=== PATIENT | male | born 1960 | race Hispanic/Latino ===

== ENCOUNTER 2021-05-12 10:46 | Day surgery (SDC) | payer SELFPAY ==
[2021-05-12] MEDS ORDERED: NA CHLORIDE 0.9% 1,000 ML ONE (11:36)
[2021-05-12] MEDS ORDERED: propofoL 200 MG/20 ML VIAL IV ONE ×3 (12:38)
[2021-05-12] MEDS ORDERED: LIDOCAINE 1% MPF 5 ML VIAL ONE (12:39)
--- NOTE | 2021-05-12 13:02 | ENDO RPT ---
[address], [address] COLONOSCOPY PROCEDURE REPORT EXAM DATE: 05/12/2021 PATIENT NAME: Wilman Morales MR #: [id number] BIRTHDATE: 1960 ATTENDING: Naresh Mata DR STATUS: outpatient SEARCH ENGINE OPTIMIZATION MANAGER: Michell Sin RN and Tiana Quan INDICATIONS: The patient is a 60 yr old Male here for a colonoscopy due to hematochezia, hemoccult positive stools, melenic bleeding, and Positive Cologuard PROCEDURE PERFORMED: Colonoscopy with biopsy - cold polypectomy MEDICATIONS: Per Anesthesia. ESTIMATED BLOOD LOSS: None CONSENT: The patient understands the risks and benefits of the procedure and understands that these risks include, but are not limited to: sedation, allergic reaction, infection, perforation and/or bleeding. Alternative means of evaluation and treatment include, among others: physical exam, x-rays, and/or surgical intervention. The patient elects to proceed with this endoscopic procedure. DESCRIPTION OF PROCEDURE: During intra-op preparation period all mechanical medical equipment was checked for proper function. Hand hygiene and appropriate measures for infection prevention was taken. Procedure, possible complications, alternatives including, but not limited to possibility of bleeding, perforation, tear, infection, sepsis, need for surgery, need for blood transfusion, were explained to the patient. After the risks, benefits and alternatives of the procedure were thoroughly explained, Informed consent was verified, confirmed and timeout was successfully executed by the treatment team. The patient was placed in the left lateral position. A digital rectal exam was performed and revealed a palpable rectal mass. After appropriate level of anesthesia, the scope was passed. The EC-[id number] ([id number]) endoscope was introduced through the anus and advanced to the cecum, which was identified by both the appendix and ileocecal valve. The quality of the prep was fair. The instrument was then slowly withdrawn as the colon was fully examined. Scope withdrawal time was 20 minutes. COLON FINDINGS: A polypoid shaped and smooth semi-pedunculated polyp ranging between 3-7mm in size was found at the hepatic flexure. A polypectomy was performed using snare cautery. The resection was complete, the polyp tissue was completely retrieved and sent to histology. The area was tattood @ the biopsy site. A half circumferential firm and fungating mass with friable surfaces was found in the anal canal and rectum and in rectum seen upon the retroflexed view. Multiple biopsies of the area were performed using cold forceps. Mild diverticulosis was noted in the left colon. No bleeding was noted from the diverticulosis. anorectal mass. The scope was then completely withdrawn from the patient and the procedure terminated. ADVERSE EVENTS: There were no complications. IMPRESSIONS: 1. Semi-pedunculated polyp ranging between 3-7mm in size was found at the hepatic flexure; polypectomy was performed using snare cautery 2. Half circumferential mass was found in the rectum and in rectum seen upon the retroflexed view; multiple biopsies of the area were performed using cold forceps RECOMMENDATIONS: 1. follow-up: office 2 week(s) 2. avoid NSAIDS for 2 weeks 3. avoid NSAIDS 4. await biopsy results 5. Monitor for any evidence of rectal bleeding. 6. increase dietary water 7. low fiber / diverticular diet 8. surgery RECALL: Naresh Mata DR eSigned: Naresh Mata DR 05/12/2021 1:02 PM cc: CPT CODES: ICD9 CODES: PATIENT NAME: Wilman Morales MR#: [id number]
[2021-05-12 15:35] VITALS: O2SAT 100
[2021-05-12 15:36] VITALS: BP 128/79; TEMP 98.1
== END 2021-05-12 13:40 | disposition home or self-care (01) ==
LOC: PRE 10:46
PROVIDERS: ATTEND Surgery
PROC: 0DBP8ZX Excision of Rectum, Via Natural or Artificial Opening Endoscopic, Diagnostic (ICD-10-PCS; 2021-05-12)
PROC: 0DBL8ZX Excision of Transverse Colon, Via Natural or Artificial Opening Endoscopic, Diagnostic (ICD-10-PCS; principal; 2021-05-12 12:15)
DX: C21.0 Malignant neoplasm of anus, unspecified (principal); N28.89 Other specified disorders of kidney and ureter; D12.3 Benign neoplasm of transverse colon; K57.30 Diverticulosis of large intestine without perforation or abscess without bleeding; R19.5 Other fecal abnormalities; Z20.822 Contact with and (suspected) exposure to COVID-19
CPT/HCPCS: 82947; 88305; J2704; J7030; U0003

== ENCOUNTER 2021-07-15 09:28 | Day surgery (SDC) | payer SELFPAY ==
[2021-07-14 12:26] LABS: Absolute Lymphocytes (CBC) 1.9 K/uL (0.7-4.9); Basophils % 0.4 % (0-1.3); Hematocrit 35.9 % (39.6-49.0); Lymphocytes % 29.1 % (15.3-44.8); MPV 8.5 fL (7.6-11.3); RBC Red Blood Cell Count 4.68 M/uL (4.33-5.43)
[2021-07-15] MEDS ORDERED: CEFAZOLIN/SWI 2gm 2 GM/20 ML SYR ONE (09:43)
[2021-07-15] MEDS ORDERED: NA CHLORIDE 0.9% 1,000 ML ONE (09:43)
[2021-07-15] MEDS ORDERED: LIDOCAINE 1% MPF 5 ML VIAL ONE (10:46)
[2021-07-15] MEDS ORDERED: propofoL 200 MG/20 ML VIAL IV ONE (10:46)
[2021-07-15] MEDS ORDERED: MIDAZOLAM HCL 2 MG/2 ML INJ ONE (10:46)
[2021-07-15] MEDS ORDERED: FENTANYL CITR 100 MCG/2 ML ONE (10:46)
[2021-07-15] MEDS ORDERED: BUPIVACAINE 0.25% PF 10 ML VIAL ONE (10:51)
[2021-07-15] MEDS ORDERED: NA CHLORIDE 0.9% 50 ML ONE (10:52)
[2021-07-15] MEDS ORDERED: ONDANSETRON 4 MG/2 ML VIAL ONE (11:31)
[2021-07-15] MEDS: HEPARIN 5000 UNIT/ML 1 ML VIAL ONE ×2 (11:44→12:00)
--- NOTE | 2021-07-15 12:11 | P.OP ---
Preoperative diagnosis: Need for Chemotherapy, Rectal Cancer Postoperative diagnosis: Need for Chemotherapy, Rectal Cancer Primary procedure: Placement of Chemotherapy Port - RIGHT internal jugular Secondary procedure: flouroscopy and ultrasound utilized with interpretation Anesthesia: GETA + Local Estimated blood loss: <20cc Specimen: none Findings: good position Complications: None Implants: MRI implantable chemo port Transferred to: Recovery Room Condition: Good
--- NOTE | 2021-07-15 12:28 | RAD REPORT ---
EXAM DESCRIPTION: RAD - Fluoroscopy <1 Hour - 07/15/2021 12:18 pm CLINICAL HISTORY: INSERT PORT-A-CATH COMPARISON: No comparisons FINDINGS/IMPRESSION: Eighteen intraoperative fluoroscopic images were submitted showing placement of a right IJ approach Port-A-Cath with tip overlying the SVC. Fluoro time: 0.6 minutes
[2021-07-15 12:35] VITALS: O2SAT 100
--- NOTE | 2021-07-15 12:45 | RAD REPORT ---
EXAM DESCRIPTION: RAD - Chest Single View - 07/15/2021 12:36 pm CLINICAL HISTORY: s/p port a cath placement, check for pneumothorax TECHNIQUE: AP portable chest image was obtained 07/15/2021 12:36 pm . FINDINGS: No pneumothorax is present. Right-sided Port-A-Cath has been placed via jugular approach. Tip of the Port-A-Cath is in the mid SVC. No acute cardiopulmonary finding. IMPRESSION: Right-sided Port-A-Cath in good position with tip mid SVC. No pneumothorax.
--- NOTE | 2021-07-15 13:42 | OP ---
Date of Procedure: 07/15/2021 Surgeon: Naresh Mata MD, Preoperative Diagnosis: Need for chemotherapy/rectal cancer. Postoperative Diagnosis: Need for chemotherapy/rectal cancer. Procedure Performed: Placement of a chemotherapy port in the right internal jugular vein using fluor oscopy and ultrasound guidance. Anesthesia: General endotracheal plus local with 0.25% Marcaine without epinephrine. Estimated Blood Loss: Less 20 mL. Specimen: None. Findings: Good position of the catheter confirmed with fluoroscopy to the confluence of the SVC. Complications: None. Implants: MRI implantable chemotherapy port. The patient transferred to recovery room in good condi tion. Procedure In Detail: After informed consent was obtained, the patient was brought to the operating r oom, prepped and draped in the usual sterile fashion. After adequate anesthesia was achieved, the pa tient was placed in steep Trendelenburg position. Using ultrasound guidance, I cannulated the right internal jugular vein on the first attempt without incident or complication. I advanced a micro wire at this point. Fluoroscopy confirmed position of the wire in the confluence of the SVC at this poin t. Confirmation was confirmed at this point and as such, I removed the needle, made a small donna inc ision overlying the insertion site, and placed the microintroducer sheath. At this point, removed th e micro wire and advanced the standard wire into the jugular vein at this point and into the confluen ce of the SVC, confirmed with fluoroscopy and found to be in good position. At this point, I found a port on the chest wall, which would the appropriate location for the subcutaneous port. I then anes thetized the entire area including the tract, cut the chest wall using 15 blade down to subcutaneous tissues. Electrocautery was used to create a pocket at this point. I then brought the tunneling dev ice to bring the catheter up into the insertion site and brought it around at this point. I then rem milo the microintroducer sheath and placed the introducer sheath for the chemotherapy port using Seld sienna technique over the wire. The wire was removed at this point. Fluoroscopy confirmed position. I then advanced catheter into the right atrium. Using fluoroscopic guidance, I backed the catheter out into the superior vena cava. At this point, I then trimmed the catheter appropriately, attached the locked collar, and attached the chemotherapy port to the catheter at this point and locked the co llar in place. At this point, I flushed it with heparinized saline which flushed quite easily. I th en packed with heparinized super flush at this point. I then secured the catheter to the chest wall after hemostasis was achieved with electrocautery on the prepectoral fascia using a 3-0 Prolene sutur e. At this point, the area was copiously irrigated. The insertion site was closed using interrupted 3-0 nylon suture and the deep dermal plane was closed on the subcutaneous port using 3-0 Vicryl sutu re in an interrupted fashion. Skin was then closed with 4-0 Monocryl in a running fashion. Dermabond placed over top. The patient tolerated the procedure well without evidence of complication and trejo sferred to PACU in good condition. All counts were correct at the end of the case. GABE/ROBERT Voice ID: [id number] Report ID: [id number]
[2021-07-15] MEDS ORDERED: HYDROCODONE/APAP 10/325 TAB ONE (13:48)
[2021-07-15 14:58] VITALS: BP 130/83; TEMP 97.8
--- NOTE | 2021-07-16 12:40 | EKG ---
Test Date: 2021-07-14 Test Time: 12:30:30 Assistant Womens Volleyball Coach: OSMANI MEASUREMENT RESULTS: Intervals: Rate: 66 CT: 128 QRSD: 80 QT: 412 QTc: 431 [place]: P: 53 CT: 128 QRS: 71 T: 81 INTERPRETIVE STATEMENTS: Normal sinus rhythm ST abnormality, possible digitalis effect Abnormal ECG No previous ECG available for comparison Electronically Signed On 07-16-21 12:36:00 AUTOMATIC VULCANIZING OPERATOR by Herman Hogue
== END 2021-07-15 14:15 | disposition home or self-care (01) ==
LOC: OR 09:28
PROVIDERS: ATTEND Surgery
PROC: 0JH60WZ Insertion of Totally Implantable Vascular Access Device into Chest Subcutaneous Tissue and Fascia, Open Approach (ICD-10-PCS; principal; 2021-07-15 11:30)
DX: C20 Malignant neoplasm of rectum (principal); Z20.822 Contact with and (suspected) exposure to COVID-19
CPT/HCPCS: 93005; 85025; 80048; 36415; 82947; 71045; 76000; 36561; U0003; J2704; J1644 ×2; J2250; J3010; J0690; J7030; J2405; C1788

== ENCOUNTER 2021-10-04 14:51 | Emergency (ER) | payer BC ==
--- OUTSIDE RECORDS SUMMARY | 2021-10-04 14:53 | XMS REPORT | Continuity of Care Document ---
:1960 Author Organization [facility] t Address [address] [place] [address] Care Team Providers Name Role Phone CarlytomMessi Primary Care Physician SYSTEM, NOT IN Attending Clinician Unavailable CONNELLY Attending Clinician Unavailable RADIOLOGY Attending Clinician Unavailable Radiology Attending Clinician Unavailable DR KRISTIN Attending Clinician Unavailable DR KRISTIN Admitting Clinician Unavailable Payers Payer Name Policy Type Policy Number Effective Date Expiration Date S ource [employer] GENERIC [id number] 2021 00:00:00 Problems This patient has no known problems. Allergies, Adverse Reactions, Alerts Allergy Allergy Status Severity Reaction(s) Onset Inactive Treating Comm ents Source Name Type Date Date Clinician NO KNOWN Drug Active [facility] Social History Social Habit Start Date Stop Date Quantity Comments Source Exposure to Not sure [facility] SARS-CoV-2 (event) Medica l Branch Sex Assigned At [birth year] [facility] 00:00:00 00:00:00 [facility] [place] Smoking Status Start Date Stop Date Source Unknown if ever smoked [facility] Medications This patient has no known medications. Procedures Procedure Date / Time Performing Clinician Source Performed CT ABDOMEN PELVIS WO 2021-05-09 21:49:32 Requisition, Paper [facility] CONTRAST [facility] Branch NO SHOW OR MISSED 2021-05-09 20:46:13 Doctor Unassigned, [facility] APPOINTMENT POLICY [facility] ACKNOWLEDGEMENT [facility] PATIENT FINANCIAL 2021-05-09 20:45:56 Doctor Unassigned, [facility] POLICY [facility] NOTICE OF PRIVACY 2021-05-09 20:45:33 Doctor Unassigned, [facility] PRACTICES [facility] CONSENT/REFUSAL FOR 2021-05-09 20:45:16 Doctor Unassigned, [facility] DIAGNOSIS AND TREATMENT [facility] ASSIGNMENT OF BENEFITS 2021-05-09 20:45:04 [facility] Encounters Start End Encounter Admission Attending Care Care Encounter Source Date/Time Date/Time Type Type Clinicians Facility Department ID 2021-05-30 Outpatient SYSTEM, [facility] [id number] 15:48:12 PROVIDER Hansel o n 2021-06-16 2021-06-16 Outpatient CONNELLY, [facility] [id number] [place] 00:00:00 00:00:[address] 2021-06-16 2021-06-16 Outpatient CONNELLY, [facility] [id number] [place] 00:00:00 00:00:[address] 2021-05-11 2021-05-11 Outpatient R RADIOLOGY [facility] [id number] Univers 00:00:00 00:00:00 ity [facility] 2021-05-09 2021-05-09 Hospital Radiology [facility] [id number] Univers 16:00:00 23:59:00 [facility] [place] [id number] [facility] [id number] [place] [address] Branch 2021-05-09 2021-05-09 Outpatient R RADIOLOGY [facility] [id number] Univers 00:00:00 00:00:00 ity [facility] 2019-06-03 2019-06-06 Inpatient E [facility] [id number] [place] 03:40:00 10:49:00 [facility] Results Test Description Test Time Test Comments Results Result Comments Source BLOOD CULTURE 2019-06-09 08:09:00 Test Item Value Reference Range Interpretation Comme nts Culture Observations (test code = COB1) NO GROWTH AFTER 5 DAYS BLOOD [id number] 08:09:00 Test Item Value Reference Range Interpretation Comments Culture Observations (test NO GROWTH AFTER 5 code = COB1) DAYS GLUCOMETER GLUCOSE- LAB USE [id number] 05:40:00 Test Item Value Reference Range Interpretation Comments GLUCOMETER (test code 116 mg/dL 70-100 H CLEANE D METERMeter ID: = GMG) [id number] tor: [id number] BASIC METABOLIC PANEL *WW*2019-06-06 05:05:00 Test Item Value Reference Range Interpretation Comments GLUCOSE (test code = 06D) 117 mg/dL 75-100 H SODIUM (test code = 01A) 139 mmol/L 136-145 POTASSIUM (test code = 01B) 3.5 mmol/L 3.6-5.1 L CHLORIDE (test code = 04A) 106 mmol/L 98-107 CO2 (test code = 02A) 28 mmol/L 22-32 ANION GAP (test code = ANG) 8.5 mmol/L BUN (test code = 05D) 9 mg/dL 7-18 CREATININE (test code = 03E) 0.8 mg/dL 0.7-1.3 BUN/CREA (test code = BCR) 11 12-20 L CALCIUM (test code = 09D) 8.1 mg/dL 8.3-9.5 L CBC (INCLUDES AUTOMATED DIFFERENTIAL)*[id number] 04:53:00 Test Item Value Reference Range Interpretation Comments WBC (test code = WBC) 6.2 10\S\3/uL 4.5-11.0 RBC (test code = RBC) 4.05 10\S\6/uL 4.20-5.60 L HGB (test code = HBG) 11.4 g/dL 14.0-18.0 L HCT (test code = HCT) 35.2 % 35.0-46.0 MCV (test code = MCV) 86.9 fL 80.0-94.0 MCH (test code = MCH) 28.1 pg 27.0-31.0 MCHC (test code = MCHC) 32.4 g/dL 32.0-36.0 RDW (test code = RDW) 13.2 % 11.5-14.5 PLT (test code = PLT) 169 10\S\3/uL 130-400 MPV (test code = MPV) 10.9 fL 9.4-12.4 NEUTROP # (test code = NE#) 4.3 10\S\3/uL 2.0-8.0 LYMPH # (test code = LY#) 1.3 10\S\3/uL 1.2-4.0 MONOCYTE # (test code = MO#) 0.5 10\S\3/uL 0.0-1.1 EOSINOPH # (test code = EO#) 0.1 10\S\3/uL 0.0-0.7 BASOPHIL # (test code = BA#) 0.0 10\S\3/uL 0.0-0.3 IG # (test code = IG#) 0.02 10\S\3/uL 0.00-0.06 NRBC # (test code = NRBC#) 0.00 10\S\3/uL 0.00-0.01 NEUTROPH % (test code = NE%) 68.1 % 35.0-73.0 LYMPH % (test code = LY%) 21.2 % 20.0-55.0 MONO % (test code = MO%) 8.3 % 2.5-10.0 EOSINOPH % (test code = EO%) 1.9 % 0.0-5.0 BASOPHIL % (test code = BA%) 0.2 % 0.0-2.0 IG % (test code = IG%) 0.3 % 0.0-0.8 NRBC% (test code = NRBC%) 0.0 % 0.0-0.2 MANDIFF (test code = WMDIFF) NO NO RBC MORPH (test code = NORMAL WRBCMOR) GLUCOMETER GLUCOSE- LAB USE [id number] 19:42:00 Test Item Value Reference Range Interpretation Comments GLUCOMETER (test code 123 mg/dL 70-100 H CLEANE D METERMeter ID: = [facility]) [id number] tor: [id number] GLUCOMETER GLUCOSE- LAB USE [id number] 16:32:00 Test Item Value Reference Range Interpretation Comments GLUCOMETER (test code = 105 mg/dL 70-100 H Mete r ID: [facility]) [id number] tor: [id number] CASSI[address] GOODE O GLUCOMETER GLUCOSE- LAB USE [id number] 11:46:00 Test Item Value Reference Range Interpretation Comments GLUCOMETER (test code = 161 mg/dL 70-100 H Mete r ID: [facility]) [id number] tor: [id number] CASSIUS GOODE O BASIC METABOLIC PANEL *WW*2019-06-05 04:52:00 Test Item Value Reference Range Interpretation Comments GLUCOSE (test code = 06D) 113 mg/dL 75-100 H SODIUM (test code = 01A) 137 mmol/L 136-145 POTASSIUM (test code = 01B) 3.6 mmol/L 3.6-5.1 CHLORIDE (test code = 04A) 104 mmol/L 98-107 CO2 (test code = 02A) 29 mmol/L 22-32 ANION GAP (test code = ANG) 7.6 mmol/L BUN (test code = 05D) 11 mg/dL 7-18 CREATININE (test code = 03E) 0.8 mg/dL 0.7-1.3 BUN/CREA (test code = BCR) 13 12-20 CALCIUM (test code = 09D) 7.9 mg/dL 8.3-9.5 L CBC (INCLUDES AUTOMATED DIFFERENTIAL)*[id number] 04:39:00 Test Item Value Reference Range Interpretation Comments WBC (test code = WBC) 10.9 10\S\3/uL 4.5-11.0 RBC (test code = RBC) 4.14 10\S\6/uL 4.20-5.60 L HGB (test code = HBG) 11.5 g/dL 14.0-18.0 L HCT (test code = HCT) 36.3 % 35.0-46.0 MCV (test code = MCV) 87.7 fL 80.0-94.0 MCH (test code = MCH) 27.8 pg 27.0-31.0 MCHC (test code = MCHC) 31.7 g/dL 32.0-36.0 L RDW (test code = RDW) 13.6 % 11.5-14.5 PLT (test code = PLT) 141 10\S\3/uL 130-400 MPV (test code = MPV) 11.7 fL 9.4-12.4 NEUTROP # (test code = NE#) 8.2 10\S\3/uL 2.0-8.0 H LYMPH # (test code = LY#) 1.8 10\S\3/uL 1.2-4.0 MONOCYTE # (test code = MO#) 0.8 10\S\3/uL 0.0-1.1 EOSINOPH # (test code = EO#) 0.0 10\S\3/uL 0.0-0.7 BASOPHIL # (test code = BA#) 0.0 10\S\3/uL 0.0-0.3 IG # (test code = IG#) 0.04 10\S\3/uL 0.00-0.06 NRBC # (test code = NRBC#) 0.00 10\S\3/uL 0.00-0.01 NEUTROPH % (test code = NE%) 74.8 % 35.0-73.0 H LYMPH % (test code = LY%) 16.7 % 20.0-55.0 L MONO % (test code = MO%) 7.5 % 2.5-10.0 EOSINOPH % (test code = EO%) 0.4 % 0.0-5.0 BASOPHIL % (test code = BA%) 0.2 % 0.0-2.0 IG % (test code = IG%) 0.4 % 0.0-0.8 NRBC% (test code = NRBC%) 0.0 % 0.0-0.2 MANDIFF (test code = WMDIFF) NO NO RBC MORPH (test code = NORMAL WRBCMOR) GLUCOMETER GLUCOSE- LAB USE [id number] 04:13:00 Test Item Value Reference Range Interpretation Comments GLUCOMETER (test code = 117 mg/dL 70-100 H Mete r ID: GMG) [id number] tor: 2013 MARKIE Ocampo [place] GLUCOMETER GLUCOSE- LAB USE [id number] 20:23:00 Test Item Value Reference Range Interpretation Comments GLUCOMETER (test code 118 mg/dL 70-100 H CLEANE D METERMeter ID: = GMG) [id number] tor: 2013 MARKIE Ocampo [place] GLUCOMETER GLUCOSE- LAB USE [id number] 16:49:00 Test Item Value Reference Range Interpretation Comments GLUCOMETER (test 121 mg/dL 70-100 H DAILY MAINT ENANCEMeter code = GMG) ID: [id number] perator: [id number] OLEGARIO N ICKERSON GLUCOMETER GLUCOSE- LAB USE [id number] 11:14:00 Test Item Value Reference Range Interpretation Comments GLUCOMETER (test 111 mg/dL 70-100 H DAILY MAINT ENANCEMeter code = GMG) ID: [id number] perator: [id number] OLEGARIO Chow KYLE BASIC METABOLIC PANEL *WW*2019-06-04 06:04:00 Test Item Value Reference Range Interpretation Comments GLUCOSE (test code = 06D) 177 mg/dL 75-100 H SODIUM (test code = 01A) 136 mmol/L 136-145 POTASSIUM (test code = 01B) 3.5 mmol/L 3.6-5.1 L CHLORIDE (test code = 04A) 103 mmol/L 98-107 CO2 (test code = 02A) 26 mmol/L 22-32 ANION GAP (test code = ANG) 10.5 mmol/L BUN (test code = 05D) 10 mg/dL 7-18 CREATININE (test code = 03E) 0.9 mg/dL 0.7-1.3 BUN/CREA (test code = BCR) 11 12-20 L CALCIUM (test code = 09D) 7.9 mg/dL 8.3-9.5 L CBC (INCLUDES AUTOMATED DIFFERENTIAL)*[id number] 05:55:00 Test Item Value Reference Range Interpretation Comments WBC (test code = WBC) 15.7 10\S\3/uL 4.5-11.0 H RBC (test code = RBC) 4.31 10\S\6/uL 4.20-5.60 HGB (test code = HBG) 12.2 g/dL 14.0-18.0 L HCT (test code = HCT) 37.4 % 35.0-46.0 MCV (test code = MCV) 86.8 fL 80.0-94.0 MCH (test code = MCH) 28.3 pg 27.0-31.0 MCHC (test code = MCHC) 32.6 g/dL 32.0-36.0 RDW (test code = RDW) 13.7 % 11.5-14.5 PLT (test code = PLT) 145 10\S\3/uL 130-400 MPV (test code = MPV) 12.2 fL 9.4-12.4 NEUTROP # (test code = NE#) 13.7 10\S\3/uL 2.0-8.0 H LYMPH # (test code = LY#) 0.8 10\S\3/uL 1.2-4.0 L MONOCYTE # (test code = MO#) 1.0 10\S\3/uL 0.0-1.1 EOSINOPH # (test code = EO#) 0.0 10\S\3/uL 0.0-0.7 BASOPHIL # (test code = BA#) 0.0 10\S\3/uL 0.0-0.3 IG # (test code = IG#) 0.07 10\S\3/uL 0.00-0.06 H NRBC # (test code = NRBC#) 0.00 10\S\3/uL 0.00-0.01 NEUTROPH % (test code = NE%) 87.6 % 35.0-73.0 H LYMPH % (test code = LY%) 5.4 % 20.0-55.0 L MONO % (test code = MO%) 6.5 % 2.5-10.0 EOSINOPH % (test code = EO%) 0.0 % 0.0-5.0 BASOPHIL % (test code = BA%) 0.1 % 0.0-2.0 IG % (test code = IG%) 0.4 % 0.0-0.8 NRBC% (test code = NRBC%) 0.0 % 0.0-0.2 MANDIFF (test code = WMDIFF) NO NO RBC MORPH (test code = NORMAL WRBCMOR) GLUCOMETER GLUCOSE- LAB USE [id number] 00:53:00 Test Item Value Reference Range Interpretation Comments GLUCOMETER (test code = 164 mg/dL 70-100 H Mete r ID: GMG) [id number] tor: [id number] TINY BAHA N POTASSIUM BLOOD *WW*2019-06-03 17:01:00 Test Item Value Reference Range Interpretation Comments POTASSIUM (test code = 01B) 3.3 mmol/L 3.6-5.1 L GLUCOMETER GLUCOSE- LAB USE [id number] 11:54:00 Test Item Value Reference Range Interpretation Comments GLUCOMETER (test code = 161 mg/dL 70-100 H Mete r ID: GMG) [id number] tor: [id number] CASSIUS MIRT O LIPASE SERUM WW2019-06-03 07:08:00 Test Item Value Reference Range Interpretation Comments LIPASE (test code = 60A) 76 IU/L 73-393 GLUCOMETER GLUCOSE- LAB USE [id number] 06:11:00 Test Item Value Reference Range Interpretation Comments GLUCOMETER (test code 151 mg/dL 70-100 H CLEANE D METERMeter ID: = GMG) [id number] tor: [id number] ABDOMEN AND PELVIS WITH CONTRAST *OW*2019-06-03 02:56:33EXAM: CT ABDOMEN AND PELVIS WITH IV CONTRASTDICTATION LOCATION: [id number]: Male, 58 years of age. R ight lower quadrant painTECHNIQUE: Contrast: Nonionic IV contrast was given. No GI contrast was given.Portal venous phase: Abdomen and pelvisDelayed phase: Abdomen and pelvisReconstructions: Coronal and sagittal One or more of the following dose reduction techniques were used: Automatedexposure control, adjustment of the mA and/or kV according to patient size,and/or utilization of iterative reconstruction technique.COMPARISON: NoneFINDINGS:Statements: Exam quality is acceptable.Lower thorax: No focal infiltrate or effusion. There is a 5 cm diameter leftBochdalek hernia containing only fat.Hepatobiliary: Liver is diffusely fatty infiltrated. 2 cm benign cyst seen inthe anterior right lobe of liver near diaphragm. No solid hepatic mass orenlargement. Couple of small soft tissue density nodules areseen in thesuperior wall of the gallbladder measuring up to 0.6 cm diameter, probablypolyps. No dependent stones or sludge. No gallbladder wall thickening orpericholecystic inflammation. No biliary dila tion.Pancreas: Normal. Spleen: Normal. Adrenals: Normal.Genitourinary: Right kidney contains a heterogeneous solid exophytic corticalmass in upper pole measuring 5.7 x 4.2 x 4.4 cm. Its density on portal phaseimages is 76 Hounsfield units, and density on delayed phase images is 67Hounsfield units. No evidence for involvement of the renal artery or vein. Noother right renal mass, obvious calculus, or hydronephrosis. Left kidneycontains a 1.6 x 1.6 x 1.8 cm solid exophytic mass in mid pole. The density onportal phase images is 70 Hounsfield units and its density on delayed phaseimages is 48 Hounsfield units. No obvious left renal stone or hydronephrosis.Ureters are unremarkable. Urinary bladder is unremarkable. The visualizedreproductive organs are unremarkable.Gastrointestinal: Appendix is enlarged measuring 15 cm diameter with thick walland moderate. Appendiceal inflammatory stranding. No calcified appendicolith.No obvious periappendiceal abscess. No other areas of focal bowel wallthickeningor perienteric inflammation. No bowel obstruction. There are severalcolonic diverticula. Small hiatal hernia is noted. Vascular: No aortic aneurysm or dissection. Lymphatics: No enlarged lymph nodes byCT size criteria.Bones/Soft Tissues: No acute osseous findings. No osteolytic or osteoblasticskeletal lesions are identified. No ventral hernias.Peritoneum/Other: No free intraperitoneal air. No free intraperitoneal fluid. IMPRESSION: 1. Acute appendicitis, probably unruptured.2. No periappendiceal abscess, free fluid, or free air.3. Bilateral solid renal masses as described above, both highly suspicious forprimary renal cell cancer. Nonemergent urologic consultation recommended.4. Fatty liver.5. Probable gallbladder polyps. Nonemergent ultrasound correlation recommended.DRUGS OF ABUSE*OW*2019-06-03 01:56:00 Test Item Value Reference Range Interpretation Comments DRUG SCRN (test code URINE DRUG SCREEN = HDOA) This is an unconfirmed screening result and should not be used for non-medical purposes PHENCYCLID (test Negative NEGATIVE code = GPCP) BENZODIAZE (test Negative NEGATIVE code = GBZO) COCAINE (test code = Negative NEGATIVE GCOC) AMPHETAMIN (test Negative NEGATIVE code = GAMP) THC (test code = Negative NEGATIVE GTHC) OPIATES (test code = Negative NEGATIVE RAFAELA) BARBITURAT (test Negative NEGATIVE code = GBAR) TCA (test code = Negative NEGATIVE GTCA) DOAH (test code = URINE DRUG DOAH) SCREEN CUT OFF VALUES Amphetamines 1000 ng/mL Barbituates 300 ng/mL Benzodiazepines 300 ng/mL Cocaine 300 ng/mL Opiates 300 ng/mL Phencyclidine 25 ng/mL THC 50 ng/mL Tricyclic Antidepressants 1000 ng/mL GENERAL CHEMISTRY 13 *OW* [id number] 01:34:00 Test Item Value Reference Range Interpretation Comments GLUCOSE (test code = GGUL) 219 mg/dL 73-118 H BUN (test code = GBUN) 10 mg/dL 7-22 CREATININE (test code = GCRE) 1.0 mg/dL 0.6-1.2 URIC ACID (test code = GUA) 4.6 mg/dL 3.6-8.0 CALCIUM (test code = GCL+) 8.8 mg/dL 8.0-10.3 ALBUMIN (test code = GALB) 4.1 g/dL 3.5-5.5 PROTEIN (test code = GTP) 7.2 g/dL 6.4-8.1 ALT (test code = GALT) 35 U/L 10-47 AST (test code = YOSI) 25 U/L 11-38 ALK PHOS (test code = GALP) 70 U/L 53-128 BILI TOTAL (test code = GTBIL) 1.0 mg/dL 0.2-1.6 GGT (test code = GGGT) 26 U/L 5-65 AMYLASE (test code = GAMY) 30 U/L 14-97 LACTIC ACID OW2019-06-03 01:30:00 Test Item Value Reference Range Interpretation Comments LACTATE (test code = ISAEL) 1.5 mmol/L 0.9-1.7 PROTHROMBIN TIME i-STAT OW2019-06-03 01:26:00 Test Item Value Reference Range Interpretation Comments PT (test code = 11.2 s 10.0-13.0 PT1) INR (test code = 0.9 INR) INRH (test code = SUGGESTED INRH) THERAPEUTIC RANGE FOR INR: 2.5 - 3.5 For Patients with Prosthetic Valves or Patients with recurrent Thromboembolic Events 2.0 - 3.0 For Most Other Applications URINALYSIS W/O MICROSCOPICOW2019-06-03 01:22:00 Test Item Value Reference Range Interpretation Comments COLOR (test code = DK YELLOW YELLOW A COLU) CLARITY (test code = Clear CLEAR CLA) GLUCOSE UR (test Trace NEGATIVE code = UA GLUCOSE) BILI UR (test code = 1+ NEGATIVE A BILE) KETONES UR (test 1+ NEGATIVE A code = CINDA) SP GRAVITY (test >=1.030 1.005-1.030 code = SPGR) PH UR (test code = 6.0 4.5-8.0 PH) PROTEIN UR (test 2+ NEGATIVE A code = PU) NITRITE UR (test Negative NEGATIVE code = NITRITE) UROBIL UR (test code 0.2 E.U./dL = GUROQ) UROBIL UR (test code UROBILINOGEN = GUROQC) REFERENCE RANGE 0.2 - 1.0 EU/dL BLOOD UR (test code Negative NEGATIVE = UA BLOOD) LEUK ES UR (test Negative NEGATIVE code = LEUK) TROPONIN I OW2019-06-03 01:21:00 Test Item Value Reference Range Interpretation Comments TROPONIN I (test code = A84) 0.000 ng/mL 0.000-0.045 CBC (INCLUDES AUTOMATED DIFFERENTIAL) *2019-06-03 01:13:00 Test Item Value Reference Range Interpretation Comments WBC (test code = WBC) 12.8 10\S\3/uL 4.5-11.0 H RBC (test code = RBC) 4.76 10\S\6/uL 4.20-5.60 HGB (test code = HBG) 13.5 g/dL 14.0-18.0 L HCT (test code = HCT) 41.3 % 35.0-46.0 MCV (test code = MCV) 86.8 fL 80.0-94.0 MCH (test code = MCH) 28.4 pg 27.0-31.0 MCHC (test code = MCHC) 32.7 g/dL 32.0-36.0 RDW (test code = RDW) 14.8 % 11.5-14.5 H PLT (test code = PLT) 184 10\S\3/uL 130-400 MPV (test code = OMPV) 9.3 fL 6.2-10.2 NEUTROP # (test code = NE#) 11.4 10\S\3/uL 2.0-8.0 H LYMPH # (test code = LY#) 0.9 10\S\3/uL 1.2-4.0 L MID # (test code = GMID#) 0.4 10\S\3/uL 0.0-1.1 GRA % (test code = GRA%) 89.4 % 35.0-73.0 H LYMPH % (test code = GLY%) 7.4 % 20.0-55.0 L MID % (test code = GMID%) 3.2 % 0.0-10.0
--- NOTE | 2021-10-04 15:31 | RAD REPORT ---
EXAM DESCRIPTION: RAD - Chest Single View - 10/04/2021 3:22 pm CLINICAL HISTORY: CONGESTION COMPARISON: CT chest October 03 TECHNIQUE: AP portable chest image was obtained 10/04/2021 3:22 pm . FINDINGS: Lung volumes are low but clear. Retrocardiac left base assessment is limited. Patient has a known Bochdalek's hernia in the medial left base. No failure or volume overload. Right-sided Port-A -Cath is place. Heart and vasculature are normal. No measurable pleural effusion and no pneumothorax. No acute bony abnormality seen. No acute aortic findings suspected. IMPRESSION: No acute cardiopulmonary process.
--- NOTE | 2021-10-04 15:32 | RAD REPORT ---
EXAM DESCRIPTION: CT - Head Brain Wo Cont - 10/04/2021 3:17 pm CLINICAL HISTORY: CONFUSED COMPARISON: No comparisons TECHNIQUE: Axial 5 mm thick images of the head were obtained without IV contrast. All CT scans are performed using dose optimization technique as appropriate and may include automated exposure control or mA/KV adjustment according to patient size. FINDINGS: No intracranial hemorrhage, mass, edema or shift of mid-line structures. No acute infarcti on changes seen. No abnormal extra-axial fluid collections. Ventricles are normal. Mastoid air cells and visualized portions of the paranasal sinuses are clear. No acute bony findings. IMPRESSION: Negative non-contrast CT head examination.
[2021-10-04] MEDS ORDERED: NA CHLORIDE 0.9% 1,000 ML ONE (15:50)
[2021-10-04 16:02] LABS: Absolute Lymphocytes (CBC) 0.9 K/uL (0.7-4.9); Hematocrit 37.1 % (39.6-49.0); Lymphocytes % 12.2 % (15.3-44.8); MPV 8.8 fL (7.6-11.3); RBC Red Blood Cell Count 5.02 M/uL (4.33-5.43)
[2021-10-04 16:22] LABS: ALT/SGPT 28 U/L (12-78); AST/SGOT 12 U/L (15-37); Albumin 3.1 g/dL (3.4-5.0); Alkaline Phosphatase 91 U/L (45-117); BUN Blood Urea Nitrogen 16 mg/dL (7-18); Bicarbonate 25 mmol/L (21-32); Bilirubin Total 0.2 mg/dL (0.2-1.0); Glucose Level 333 mg/dL (74-106); NT PRO-BNP 19 pg/mL (<125); Potassium 3.9 mmol/L (3.5-5.1); Protein, Total 6.6 g/dL (6.4-8.2); Protime INR 0.97; Sodium Level 136 mmol/L (136-145)
[2021-10-04 16:26] LABS: Bilirubin Direct < 0.1 mg/dL (0-0.2)
[2021-10-04 17:22] LABS: Anisocytosis 1+; Blood Morphology Comment NOTED (NOT SEEN); Platelet Estimate ADEQ; White Blood Cell Scan OK (OK)
--- NOTE | 2021-10-04 17:28 | EDPHYS ---
Physician Documentation [facility] Name: Wilman Morales Age: 61 yrs Sex: Male : 1960 Arrival Date: 10/04/2021 Time: 14:51 Bed 26 Private MD: ED Physician Ryan Loving HPI: 10/04 14:59 This 61 yrs old Male presents to ER via Unassigned with complaints of Chest ma2 Pain. 15:21 61-year-old male, was sent from his heme oncologist, because he had allergic reaction ma2 to Benadryl which was given IV 25 mg Benadryl 1 hour ago, and then he started to breathing fast and gazing into the space.. Historical: - Allergies: 15:06 No Known Allergies; ap3 - PMHx: 15:06 diabetes mellitus; rectal cancer; Renal Cancer; ap3 - Immunization history:: Client reports receiving the 2nd dose of the Covid vaccine, Flu vaccine is up to date. - Social history:: Smoking status: Patient denies any tobacco usage or history of. Patient/guardian denies using alcohol, street drugs, The patient lives with family. - Family history:: not pertinent. ROS: 15:21 Constitutional: Negative for fever, chills, and weight loss. ma2 15:21 All other systems are negative. Exam: 15:21 Constitutional: This is a well developed, well nourished patient who is awake, alert, ma2 and in no acute distress. Neck: Trachea midline, no thyromegaly or masses palpated, and no cervical lymphadenopathy. Supple, full range of motion without nuchal rigidity, or vertebral point tenderness. No Meningismus. Chest/axilla: Normal chest wall appearance and motion. Nontender with no deformity. No lesions are appreciated. Cardiovascular: Regular rate and rhythm with a normal S1 and S2. No gallops, murmurs, or rubs. Normal PMI, no JVD. No pulse deficits. Respiratory: Lungs have equal breath sounds bilaterally, clear to auscultation and percussion. No rales, rhonchi or wheezes noted. No increased work of breathing, no retractions or nasal flaring. Abdomen/GI: Soft, non-tender, with normal bowel sounds. No distension or tympany. No guarding or rebound. No evidence of tenderness throughout. MS/ Extremity: Pulses equal, no cyanosis. Neurovascular intact. Full, normal range of motion. Neuro: Awake and alert, GCS 15, oriented to person, place, time, and situation. Cranial nerves II-XII grossly intact. Motor strength 5/5 in all extremities. Sensory grossly intact. Cerebellar exam normal. Normal gait. Vital Signs: 15:02 BP 126 / 71; Pulse 76; Resp 18; Temp 99.7; Pulse Ox 95% on R/A; Weight 87.09 kg; Height ap3 5 ft. 8 in. (172.72 cm); 15:58 BP 129 / 70; Pulse 82; Resp 18; Pulse Ox 97% ; ss7 17:02 BP 100 / 76; Pulse 92; Resp 20; Pulse Ox 98% ; ss7 15:02 Body Mass Index 29.19 (87.09 kg, 172.72 cm) ap3 MDM: 15:49 Differential diagnosis: Patient feels better at this time he is back to baseline, ANO mn2 x4. I discussed with his as well over the phone, she said that he has not been sleeping for few days, has insomnia. She also states that he had similar reaction to Benadryl in the past where he becomes sleepy. 15:50 Data reviewed: vital signs, nurses notes, EMS record, diagnostic data from outside [facility] facility, old medical records, lab test result(s). Response to treatment: the patient's symptoms have markedly improved after treatment. 17:27 Patient medically screened. mn10/04 14:56 Order name: Basic Metabolic Panel; Complete Time: 16:34 mn10/04 14:56 Order name: CBC with Diff 10/04 14:56 Order name: LFT's; Complete Time: 16:34 mn10/04 14:56 Order name: Magnesium; Complete Time: 16:34 mn10/04 14:56 Order name: NT PRO-BNP; Complete Time: 16:34 mn10/04 14:56 Order name: PT-INR; Complete Time: 16:34 mn10/04 14:56 Order name: Troponin HS; Complete Time: 16:34 mn10/04 14:56 Order name: XRAY Chest (1 view); Complete Time: 15:33 mn10/04 14:56 Order name: EKG; Complete Time: 14:57 ma2 10/04 14:56 Order name: Cardiac monitoring; Complete Time: 15:55 ma2 10/04 14:56 Order name: EKG - Nurse/Tech; Complete Time: 15:56 ma2 10/04 14:56 Order name: CT Head Brain wo Cont; Complete Time: 15:33 ma2 10/04 17:22 Order name: CBC Smear Scan [facility] 10/04 14:56 Order name: IV Saline Lock; Complete Time: 15:55 ma2 10/04 14:56 Order name: Labs collected and sent; Complete Time: 15:55 ma2 10/04 14:56 Order name: O2 Per Protocol; Complete Time: 15:55 ma2 10/04 14:56 Order name: O2 Sat Monitoring; Complete Time: 15:55 ma2 Administered Medications: 15:56 Drug: NS 0.9% 1000 ml Route: IV; Rate: 1 bolus; Site: right antecubital; ss7 17:00 Follow up: Response: No adverse reaction; IV Status: Completed infusion ss7 Disposition Summary: 10/04/21 17:27 Discharge Ordered Location: Home ma2 Condition: Stable ma2 Diagnosis - Dizziness and giddiness - Allergic reaction to Benadryl ma2 Followup: ma2 - With: Private Physician - When: Tomorrow - Reason: Continuance of care Discharge Instructions: - Discharge Summary Sheet ma2 - Dizziness ma2 - Allergies, Adult, [id number] ma2 Forms: - Medication Reconciliation Form ma2 - Thank You Letter ma2 - Antibiotic Education ma2 - Prescription Opioid Use ma2 Signatures: Dispatcher [employer] [facility] Ryan Loving MD MD ma2 Jennifer Ospina RN RN ap3 Joanne Yan RN RN ss7
--- NOTE | 2021-10-04 17:28 | ER ---
Nurse's Notes [facility] Name: Wilman Morales Age: 61 yrs Sex: Male : 1960 Arrival Date: 10/04/2021 Time: 14:51 Bed 26 Private MD: Diagnosis: Dizziness and giddiness-Allergic reaction to Benadryl Presentation: 10/04 15:02 Chief complaint: nurse from [facility] brought patient over in a wheelchair. She ap3 reported that soon after she started the patients treatment today, be began having chest pain which radiated to his jaw. She reports this hasn't happened with him before, and this was his 6th treatment. The cancer center administered 25mg of Benadryl and some fluids. Coronavirus screen: At this time, the client does not indicate any symptoms associated with coronavirus-19. Ebola Screen: No symptoms or risks identified at this time. Initial Sepsis Screen: Does the patient meet any 2 criteria? No. Patient's initial sepsis screen is negative. Does the patient have a suspected source of infection? No. Patient's initial sepsis screen is negative. Risk Assessment: Do you want to hurt yourself or someone else? Patient reports no desire to harm self or others. Onset of symptoms was October 04, 2021. 15:02 Method Of Arrival: Wheelchair ap3 15:02 Acuity: OZIEL 3 ap3 Triage Assessment: 15:06 General: Appears drowsy. Patient falling asleep during triage assessment. Behavior is ap3 cooperative, drowsy. Pain: Complains of pain in head. Neuro: Level of Consciousness is obeys commands, lethargic, Oriented to person, place, time, situation. Cardiovascular: Reports chest pain, which has resolved, patient now c/o headache. Respiratory: Airway is patent Respiratory effort is even, unlabored, Respiratory pattern is regular, symmetrical. Historical: - Allergies: 15:06 No Known Allergies; ap3 - PMHx: 15:06 diabetes mellitus; rectal cancer; Renal Cancer; ap3 - Immunization history:: Client reports receiving the 2nd dose of the Covid vaccine, Flu vaccine is up to date. - Social history:: Smoking status: Patient denies any tobacco usage or history of. Patient/guardian denies using alcohol, street drugs, The patient lives with family. - Family history:: not pertinent. Screenin:09 Abuse screen: Denies threats or abuse. Nutritional screening: cancer patient . ap3 Tuberculosis screening: No symptoms or risk factors identified. 17:47 Fall Risk IV access (20 points). ss7 Assessment: 15:56 General: Appears comfortable, well groomed, Behavior is calm, cooperative, drowsy, Pt ss7 states given benadryl at cancer center and it has made him sleepy. . Pain: Complains of pain in chest. Neuro: No deficits noted. Cardiovascular: Heart tones S1 S2. Respiratory: Breath sounds are clear bilaterally. GI: No deficits noted. Bowel sounds present X 4 quads. : No deficits noted. EENT: No deficits noted. Derm: No deficits noted. Musculoskeletal: No deficits noted. Vital Signs: 15:02 BP 126 / 71; Pulse 76; Resp 18; Temp 99.7; Pulse Ox 95% on R/A; Weight 87.09 kg; Height ap3 5 ft. 8 in. (172.72 cm); 15:58 BP 129 / 70; Pulse 82; Resp 18; Pulse Ox 97% ; ss7 17:02 BP 100 / 76; Pulse 92; Resp 20; Pulse Ox 98% ; ss7 15:02 Body Mass Index 29.19 (87.09 kg, 172.72 cm) ap3 ED Course: 14:51 Patient arrived in ED. am2 15:04 Triage completed. ap3 15:08 EKG done. ap3 15:08 Patient maintains SpO2 saturation greater than 95% on room air. ap3 15:08 Arm band placed on right wrist. ap3 15:15 CT Head Brain wo Cont In Process Unspecified. EDMS 15:21 Ryan Loving MD is Attending Physician. ma2 15:22 XRAY Chest (1 view) In Process Unspecified. EDMS 15:43 Joanne Yan, RN is Primary Nurse. ss7 15:55 Basic Metabolic Panel Sent. ss7 15:55 CBC with Diff Sent. ss7 15:55 LFT's Sent. ss7 15:55 Magnesium Sent. ss7 15:56 Troponin HS Sent. ss7 15:56 NT PRO-BNP Sent. ss7 15:56 PT-INR Sent. ss7 17:45 No provider procedures requiring assistance completed. Maintain EMS IV. Dressing ss7 intact. Gauge \T\ site: RAC 20G. 17:46 IV discontinued, intact. ss7 17:46 Patient has correct armband on for positive identification. Bed in low position. Call ss7 light in reach. monitoring tech on. Pulse ox on. NIBP on. Administered Medications: 15:56 Drug: NS 0.9% 1000 ml Route: IV; Rate: 1 bolus; Site: right antecubital; ss7 17:00 Follow up: Response: No adverse reaction; IV Status: Completed infusion ss7 Outcome: 17:27 Discharge ordered by . lorena 17:45 Discharged to home ambulatory. ss7 17:45 Condition: improved 17:45 Discharge instructions given to patient. 17:47 Patient left the ED. ss7 Signatures: Dispatcher [employer] EDJennifer Chavira Mohammad, MD MD ma2 Prokisch, Amanda, RN RN ap3 Joanne Yan RN RN ss7
[2021-10-04 19:18] VITALS: TEMP 99.7
[2021-10-04 19:19] VITALS: BP 129/70; O2SAT 97
--- NOTE | 2021-10-06 07:37 | EKG ---
Test Date: 2021-10-04 Test Time: 14:58:30 [employer]inder: ALP MEASUREMENT RESULTS: Intervals: Rate: 86 NM: 120 QRSD: 74 QT: 384 QTc: 459 [place]: P: 62 NM: 120 QRS: 59 T: 76 INTERPRETIVE STATEMENTS: Normal sinus rhythm Nonspecific ST abnormality Abnormal ECG Compared to ECG 07/14/2021 12:30:30 No significant changes Electronically Signed On 10-06-21 07:35:56 [employer]ICE PRESIDENT [employer] by Herman Hogue
== END 2021-10-04 17:47 | disposition home or self-care (01) ==
LOC: ER 14:51
DX: R42 Dizziness and giddiness (principal); R07.9 Chest pain, unspecified; Z88.8 Allergy status to other drugs, medicaments and biological substances; Z85.53 Personal history of malignant neoplasm of renal pelvis; Z85.048 Personal history of other malignant neoplasm of rectum, rectosigmoid junction, and anus
CPT/HCPCS: 93005; 85025; 80048; 36415; 83735; 85610; 80076; 84484; 83880; 70450; 71045; 96360; 99285; J7030